=== PATIENT | female | born 1990 | race Asian ===

== ENCOUNTER 2024-08-12 00:12 | Emergency (ER) | payer OTHER ==
[~2024-08-12] VITALS: Ht 152.4 cm; Wt 78.9 kg
[2024-08-12] MEDS ORDERED: DICYCLOMINE HCL INJ 20 MG/2 ML AMPUL IM ONE (01:32)
[2024-08-12] MEDS ORDERED: SIMETHICONE 80 MG TAB.CHEW ONE (01:33)
[2024-08-12] MEDS ORDERED: ONDANSETRON HCL/PF 4 MG/2 ML VIAL ONE ×2 (01:33→02:47)
[2024-08-12] MEDS: SIMETHICONE 80 MG TAB.CHEW PO ONE (01:43)
[2024-08-12] MEDS: DICYCLOMINE HCL INJ 20 MG/2 ML AMPUL IM ONE (01:44)
[2024-08-12] MEDS: ONDANSETRON HCL/PF 4 MG/2 ML VIAL IVP ONE (01:44)
[2024-08-12] MEDS: IV NS 0.9% 1,000 ML BAG IV ONE (01:44)
[2024-08-12 01:45] LABS: BASOPHILS # (AUTO) 0.1 K/uL (0.0-0.2); BASOPHILS % (AUTO) 0.3 % (0.0-2.0); EOSINOPHILS # (AUTO) 0.1 K/uL (0.0-0.7); EOSINOPHILS % (AUTO) 0.4 % (0.0-6.0); HEMATOCRIT 42 % (33-45); LYMPHOCYTES # (AUTO) 1.7 K/uL (0.8-4.8); LYMPHOCYTES % (AUTO) 10.3 % (20.0-44.0); MEAN CORPUSCULAR HEMOGLOBIN 30 PG (26.0-33.0); MEAN CORPUSCULAR HGB CONC 33 g/dl (31.0-36.0); MEAN CORPUSCULAR VOLUME 89 fL (82-100); MONOCYTES # (AUTO) 0.7 K/uL (0.1-1.30); MONOCYTES % (AUTO) 4.3 % (2.0-12.0); NEUTROPHILS # (AUTO) 13.7 K/uL (1.8-8.9); NEUTROPHILS % (AUTO) 84.7 % (43.0-81.0); PLATELET COUNT (AUTO) 307 K/uL (150-450); RED CELL DISTRIBUTION WIDTH 13.9 % (11.5-15.0); WHITE BLOOD COUNT (AUTO) 16.2 K/uL (4.3-11.0)
[2024-08-12 01:48] LABS: APPEARANCE,URINE TURBID (CLEAR); BILIRUBIN,URINE NEGATIVE (NEGATIVE); BLOOD, URINE 3+ Ery/uL (NEGATIVE); COLOR,URINE DARK YELLOW (YELLOW); KETONES,URINE TRACE mg/dL (NEGATIVE); LEUKOCYTE ESTERASE ,URINE 1+ (NEGATIVE); NITRITE, URINE NEGATIVE (NEGATIVE); PH,URINE 6.5 (5.0-8.0); PROTEIN,URINE 2+ mg/dl (NEGATIVE); UGLUCOSE NEGATIVE (NEGATIVE)
[2024-08-12 01:52] LABS: CALCIUM, SERUM 9.2 mg/dL (8.5-10.1); CREATININE 0.8 mg/dL (0.6-1.3); POTASSIUM 4.2 mmol/L (3.5-5.1)
[2024-08-12 01:52] LABS: PREGNANCY TEST URINE QUAL NEGATIVE (NEGATIVE)
[2024-08-12 01:58] LABS: ALBUMIN 3.8 g/dL (3.4-5.0); BILIRUBIN,TOTAL 0.3 mg/dL (0.2-1.0); TOTAL PROTEIN, SERUM 7.7 g/dL (6.4-8.2)
[2024-08-12 02:22] LABS: WBC,URINE TOO NUMEROUS TO COUN /HPF (0-3)
[2024-08-12 02:26] LABS: ADD URINE CULTURE YES
[2024-08-12 02:27] LABS: BACTERIA,URINE Few /HPF (None Seen)
[2024-08-12 02:37] LABS: PARTIAL THROMBOPLASTIN TIME 25.4 SEC (24.3-34.3); PROTHROMBIN TIME 10.6 SECS (9.2-11.1)
[2024-08-12] MEDS ORDERED: IBUP-1957 PO (02:47)
[2024-08-12] MEDS ORDERED: TAMS-12 PO (02:47)
[2024-08-12] MEDS ORDERED: ONDA4TAB5 PO (02:47)
[2024-08-12] MEDS ORDERED: MORPHINE SULFATE INJ 4 MG/ML DISP.SYRIN ONE (02:47)
[2024-08-12] MEDS ORDERED: HYDR-3972 PO (02:47)
[2024-08-12] MEDS: ONDANSETRON HCL/PF 4 MG/2 ML VIAL IV ONE (02:48)
[2024-08-12] MEDS ORDERED: NITR100C6 PO (02:48)
[2024-08-12] MEDS: MORPHINE SULFATE INJ 2 MG/ML DISP.SYRIN IV ONE (02:48)
[2024-08-12] MEDS: NITROFURANTOIN/MONOHYDRATE MACROCRYSTALS 100 MG CAPSULE PO ONE (02:58)
[2024-08-12] MEDS ORDERED: NITROFURANTOIN/MONOHYDRATE MACROCRYSTALS 100 MG CAPSULE ONE (02:58)
[2024-08-12 03:30] VITALS: BP 137/98; TEMP 98.2; O2SAT 98
== END 2024-08-12 03:31 | disposition home or self-care (01) ==
LOC: ER 00:22
DX: N20.0 Calculus of kidney (principal); N39.0 Urinary tract infection, site not specified; E11.9 Type 2 diabetes mellitus without complications; R11.2 Nausea with vomiting, unspecified
CPT/HCPCS: 99285; 74176; 96374; 96361; 96375; 96376; 85025; 80048; 87086; 83690; 80076; 84703; 81001; 36415; 85730; 96372; J2270; J2405 ×2; J7030; J0500